=== PATIENT | male | born 1975 | race Caucasian/White ===

== ENCOUNTER 2023-09-13 23:02 | Emergency (ER) | payer MEDICAID ==
[~2023-09-13] VITALS: Ht 172.7 cm; Wt 69.0 kg
[2023-09-13] MEDS ORDERED: METHYLPREDNISOLONE SOD SUCC 125MG/2ML (ACT-O-VIAL) IV STA (23:07)
[2023-09-13] MEDS ORDERED: IPRATROPIUM BROMIDE (0.02%) 0.5MG/2.5ML NEB HHN STA (23:07)
[2023-09-13] MEDS ORDERED: ALBUTEROL (0.083%) 2.5MG/3ML NEB HHN STA (23:07)
[2023-09-13 23:14] VITALS: TEMP 98.7
[2023-09-14 01:39] VITALS: PULSE 102; RESP 16; O2SAT 97
[2023-09-14] MEDS: IPRATROPIUM BROMIDE (0.02%) 0.5MG/2.5ML NEB HHN NR (01:39)
[2023-09-14] MEDS: ALBUTEROL (0.083%) 2.5MG/3ML NEB HHN NR (01:39)
[2023-09-14 03:25] LABS: BASOPHILS % 1.3 % (0.0-2.0); DIFFERENTIAL COMMENT 0; EOSINOPHILS % 12.2 % (0.0-5.0); HEMATOCRIT. 32.1 % (42.0-52.0); HEMOGLOBIN. 10.5 g/dL (14.0-18.0); LYMPHOCYTES % 30.5 % (20.0-50.0); MEAN CORPUSCULAR HEMOGLOBIN 24.5 pg (28.0-32.0); MEAN CORPUSCULAR HGB CONC 32.6 g/dL (31.0-37.0); MEAN CORPUSCULAR VOLUME 75.2 fL (80.0-94.0); MEAN PLATELET VOLUME 6.4 fl (7.4-10.4); MONOCYTES % 10.1 % (2.0-8.0); NEUTROPHILS % 45.9 % (40.0-76.0); PLATELET 404 x1000/uL (130-400); RED BLOOD CELL COUNT 4.27 mill/uL (4.7-6.1); RED CELL DISTRIBUTION WIDTH 18.6 % (11.6-14.6); WHITE BLOOD COUNT 6.4 x1000/uL (4.5-11.0)
[2023-09-14 03:30] LABS: CHLORIDE 109 mEq/L (98-107); POTASSIUM 3.6 mEq/L (3.5-5.1); SODIUM 139 mEq/L (136-145)
[2023-09-14 03:31] LABS: CALCIUM 8.4 mg/dL (8.7-10.4); CARBON DIOXIDE 24 mEq/L (21-32)
[2023-09-14 03:36] LABS: CREATININE 0.6 mg/dL (0.6-1.3); GLUCOSE 103 mg/dL (70-105); UREA NITROGEN BLOOD 17 mg/dL (9-23)
[2023-09-14 03:37] LABS: ETHANOL BLOOD < 10 mg/dL (<10)
[2023-09-14 03:39] LABS: TROPONIN I HIGH SENSITIVITY < 4 ng/L (3.0-53)
[2023-09-14] MEDS ORDERED: P20 MT (03:48)
[2023-09-14] MEDS ORDERED: ALBU6.7H15 INH (03:48)
[2023-09-14] MEDS: METHYLPREDNISOLONE SOD SUCC 125MG/2ML (ACT-O-VIAL) IV NR (04:53)
[2023-09-14 05:00] VITALS: BP 144/75; PULSE 83; RESP 17
== END 2023-09-14 05:45 | disposition home or self-care (01) ==
LOC: EDBD 23:02 → ER 23:02
DX: J44.1 Chronic obstructive pulmonary disease with (acute) exacerbation (principal)
CPT/HCPCS: 36415; 71045; 94640; 93005; 99285; 80048; 80320; 83880; 83690; 85025; 84484; 96374; Z7610 ×3; J2930; G0480

== ENCOUNTER 2023-09-14 21:59 | Emergency (ER) | payer MEDICAID ==
[~2023-09-14] VITALS: Ht 175.3 cm; Wt 75.0 kg
[~2023-09-14 21:59] MED LIST: ALBU6.7H15 INH; P20 MT
[2023-09-14 22:09] VITALS: BP 139/75; TEMP 97.5
[2023-09-14] MEDS: PREDNISONE 20MG TABLET PO ONE (22:30)
[2023-09-14 23:30] VITALS: PULSE 78; RESP 20; O2SAT 97
[2023-09-14] MEDS: ALBUTEROL (0.083%) 2.5MG/3ML NEB HHN STA (23:30)
[2023-09-14] MEDS: IPRATROPIUM BROMIDE (0.02%) 0.5MG/2.5ML NEB HHN STA (23:30)
[2023-09-16] MEDS ORDERED: ALBU6.7H15 INH (07:24)
== END 2023-09-15 00:31 | disposition home or self-care (01) ==
LOC: ER 21:59
DX: J44.1 Chronic obstructive pulmonary disease with (acute) exacerbation (principal); F17.210 Nicotine dependence, cigarettes, uncomplicated
CPT/HCPCS: 94640; 99283; 99406; J7512; Z7610 ×3

== ENCOUNTER 2023-09-16 04:53 | Emergency (ER) | payer MEDICAID ==
[~2023-09-16] VITALS: Ht 167.6 cm; Wt 75.0 kg
[2023-09-16 04:54] VITALS: BP 149/97; TEMP 98.1
[2023-09-16] MEDS ORDERED: IPRATROPIUM BROMIDE (0.02%) 0.5MG/2.5ML NEB HHN STA (05:58)
[2023-09-16] MEDS ORDERED: DEXAMETHASONE 1MG TABLET PO ONE (06:00)
[2023-09-16] MEDS: ALBUTEROL (0.083%) 2.5MG/3ML NEB HHN SCH (06:30)
[2023-09-16] MEDS: DEXAMETHASONE 2MG TABLET PO NR (06:45)
[2023-09-16] MEDS: IPRATROPIUM BROMIDE (0.02%) 0.5MG/2.5ML NEB HHN NR (06:50)
[2023-09-16 06:51] VITALS: PULSE 89; RESP 18; O2SAT 94
[2023-09-16] MEDS ORDERED: ALBU6.7H15 INH (07:24)
[2023-09-17] MEDS ORDERED: P20 MT (04:01)
[2023-09-17] MEDS ORDERED: ALBU6.7H15 INH (04:01)
== END 2023-09-16 07:30 | disposition home or self-care (01) ==
LOC: ER 04:53
DX: J44.1 Chronic obstructive pulmonary disease with (acute) exacerbation (principal); Z88.6 Allergy status to analgesic agent
CPT/HCPCS: 71045; 94644; 99291; Z7610 ×3; J8540

== ENCOUNTER 2023-09-17 00:34 | Emergency (ER) | payer MEDICAID ==
[~2023-09-17] VITALS: Ht 177.8 cm; Wt 60.0 kg
[2023-09-17 00:39] VITALS: TEMP 98.7
[2023-09-17] MEDS: PREDNISONE 20MG TABLET PO STA (00:39)
[2023-09-17] MEDS: ALBUTEROL (0.083%) 2.5MG/3ML NEB HHN SCH (01:23)
[2023-09-17] MEDS: IPRATROPIUM BROMIDE (0.02%) 0.5MG/2.5ML NEB HHN STA (01:23)
[2023-09-17 01:50] VITALS: PULSE 70; RESP 18; O2SAT 97
[2023-09-17] MEDS ORDERED: ALBU6.7H15 INH (04:01)
[2023-09-17] MEDS ORDERED: P20 MT (04:01)
[2023-09-17 04:17] VITALS: BP 141/85; PULSE 86; RESP 18
== END 2023-09-17 04:19 | disposition home or self-care (01) ==
LOC: ER 00:34
DX: J44.1 Chronic obstructive pulmonary disease with (acute) exacerbation (principal)
CPT/HCPCS: 71045; 94640; 99283; Z7610 ×2